=== PATIENT | female | born 2000 | race African-American/Black ===

== ENCOUNTER 2024-03-16 17:36 | Emergency (ER) | payer MEDICAID ==
[~2024-03-16] VITALS: Ht 172.7 cm; Wt 100.0 kg
[2024-03-16 17:55] LABS: COVID AG,FIA SOURCE NASAL SWAB
[2024-03-16 18:23] LABS: SARS-COV2 (COVID) ANTIGEN,FIA Negative (Negative)
[2024-03-16 18:25] LABS: INFLUENZA TYPE A NEGATIVE FOR TYPE A (NEGATIVE); INFLUENZA TYPE B POSITIVE FOR TYPE B (NEGATIVE)
[2024-03-16 23:01] VITALS: BP 135/85; PULSE 92; RESP 20; TEMP 99.7; O2SAT 100
[2024-03-17] MEDS ORDERED: OSEL75CA45 PO (00:48)
== END 2024-03-17 01:00 | disposition home or self-care (01) ==
LOC: EMS 17:36
DX: J11.1 Influenza due to unidentified influenza virus with other respiratory manifestations (principal); Z20.822 Contact with and (suspected) exposure to COVID-19
CPT/HCPCS: 87804; 99283